=== PATIENT | male | born 1985 | race Asian ===

== ENCOUNTER 2018-05-06 20:51 | Emergency (ER) | payer OTHER ==
[~2018-05-06] VITALS: Ht 177.8 cm; Wt 81.6 kg
[2018-05-06 21:01] VITALS: BP_SYST 148
[2018-05-06] MEDS ORDERED: ONDANSETRON 4 MG ODT TAB PO ONE (21:30)
[2018-05-06] MEDS ORDERED: MORPHINE 4 MG/ML INJ. SYRINGE IM ONE (21:30)
[2018-05-06 21:43] LABS: BILIRUBIN,URINE NEGATIVE (NEGATIVE); BLOOD, URINE NEGATIVE (NEGATIVE); CLARITY/URINE CLEAR (CLEAR); COLOR,URINE YELLOW (YELLOW); GLUCOSE,URINE NEGATIVE (NEGATIVE); KETONES,URINE NEGATIVE (NEGATIVE); LEUKOCYTE ESTERASE ,URINE NEGATIVE (NEGATIVE); NITRITE, URINE NEGATIVE (NEGATIVE); PH,URINE 5.5 (5.0-8.0); PROTEIN URINE NEGATIVE (NEGATIVE); UROBILINOGEN,URINE 0.2 (0.2-1.0)
[2018-05-06 22:00] LABS: BASOPHILS # (AUTO) 0.1 K/uL (0.0-0.2); BASOPHILS % (AUTO) 0.5 % (0.0-2.0); EOSINOPHILS # (AUTO) 0.1 K/uL (0.0-0.4); EOSINOPHILS % (AUTO) 0.6 % (0.0-4.0); HEMATOCRIT 48.5 % (36-54); HEMOGLOBIN 16.6 g/dL (14.0-18.0); LYMPHOCYTES # (AUTO) 1.2 K/uL (1.0-5.5); LYMPHOCYTES % (AUTO) 7.5 % (20.5-51.5); MEAN CORPUSCULAR HEMOGLOBIN 31 pg (27-31); MEAN CORPUSCULAR HGB CONC 34 % (32-36); MEAN CORPUSCULAR VOLUME 90 fL (79.0-98.0); MONOCYTES # (AUTO) 0.6 K/uL (0.0-1.0); MONOCYTES % (AUTO) 3.8 % (1.7-9.3); NEUTROPHILS # (AUTO) 14.1 K/uL (1.8-7.7); NEUTROPHILS % (AUTO) 87.6 % (40.0-70.0); PLATELET COUNT (AUTO) 253 K/uL (130-430); RED BLOOD CELL COUNT(AUTO) 5.42 MIL/uL (4.2-6.2); RED CELL DISTRIBUTION WIDTH 12.3 % (9.0-15.0); WHITE BLOOD COUNT (AUTO) 16.1 K/uL (4.8-10.8)
[2018-05-06 22:09] LABS: CALCIUM 9.5 mg/dL (8.4-11.0); CREATININE 0.81 mg/dL (0.55-1.30); POTASSIUM 4.2 mmol/L (3.5-5.1)
[2018-05-06 22:14] LABS: ALBUMIN 4.2 g/dL (3.4-4.8); TOTAL BILIRUBIN 0.4 mg/dL (0.0-1.0)
[2018-05-07 01:20] VITALS: BP_SYST 132
== END 2018-05-07 01:20 | disposition home or self-care (01) ==
LOC: SED 20:51
DX: R51 Headache (principal)
CPT/HCPCS: 36415; 70450; 80053; 81003; 85025; 96372; 99285; J2270; Q0162

== ENCOUNTER 2022-09-09 00:56 | Emergency (ER) | payer OTHER ==
[~2022-09-09] VITALS: Ht 177.8 cm; Wt 81.6 kg
[2022-09-09 01:03] VITALS: BP_SYST 133
--- NOTE | 2022-09-09 01:03 | NUR ---
tRIAGED Patient and placed in ER bed 6. Bed placed in lowest position and side rails up. Instructed patient to notify ED staff for any changes in condition or worsening of symptoms while waiting to be seen by a provider. Patient verbalized understanding.
--- NOTE | 2022-09-09 01:05 | NUR ---
ER Dr. Armijo at bedside examining patient. C/o of diarrhea X 6 since dinner.
[2022-09-09] MEDS ORDERED: KETOROLAC TROMETHAMINE 60 MG/2 ML VIAL IM ONE (01:30)
[2022-09-09] MEDS ORDERED: DICY10SO PO (02:05)
[2022-09-09] MEDS ORDERED: ONDA-8 TL (02:05)
[2022-09-09] MEDS ORDERED: SIME180C35 PO (02:05)
[2022-09-09] MEDS ORDERED: ACET-2634 PO (02:05)
[2022-09-09] MEDS ORDERED: OSEL75CA PO (02:06)
[2022-09-09] MEDS ORDERED: LOPERAMIDE HCL 2 MG CAPSULE PO ONE (02:15)
--- NOTE | 2022-09-09 02:39 | NUR ---
Patient given written and verbal discharge instructions and verbalizes understanding. ER MD discussed with patient the results and treatment provided. Patient in stable condition. ID arm band removed. Rx of Tylenol, Tamiflu, zofran, dicyclomine and simethicone given. Patient educated on pain management and to follow up with PMD. Pain Scale 0/10. Opportunity for questions provided and answered. Medication side effect fact sheet provided.
[2022-09-09 02:44] VITALS: BP_SYST 115
== END 2022-09-09 02:44 | disposition home or self-care (01) ==
LOC: SED 00:56
DX: J10.1 Influenza due to other identified influenza virus with other respiratory manifestations (principal); R19.7 Diarrhea, unspecified; R05.9 Cough, unspecified; Z79.899 Other long term (current) drug therapy; Z20.822 Contact with and (suspected) exposure to COVID-19
CPT/HCPCS: 99283; 87426; 36415; 96372; 87804 ×2; J1885

== ENCOUNTER 2023-02-13 23:46 | Emergency (ER) | payer OTHER ==
[~2023-02-13] VITALS: Ht 185.4 cm; Wt 79.4 kg
[~2023-02-13 23:46] MED LIST: ACET-2634 PO; DICY10SO PO; ONDA-8 TL; OSEL75CA PO; SIME180C35 PO
[2023-02-13 23:59] VITALS: BP_SYST 125; PULSE 74; RESP 18; TEMP 98.3; O2SAT 98
[2023-02-14 01:24] VITALS: BP_SYST 122; PULSE 64; RESP 18; TEMP 98.3
== END 2023-02-14 01:24 | disposition home or self-care (01) ==
LOC: SED 23:46
DX: J02.9 Acute pharyngitis, unspecified (principal); Z79.899 Other long term (current) drug therapy
CPT/HCPCS: 99281